=== PATIENT | female | born 1955 | race Caucasian/White ===

== ENCOUNTER → 2017-11-05 | Outpatient (CLI) | payer OTHER ==
[~2017-11-05] MED LIST: ACET325 PO; ALBU90OI INH; ASPI81CH PO; ATOR40TA PO; CIPR250 PO; CIPR500 PO; CITA20 PO; DICL25ER PO; DULO60; DULO60 PO; GABA300 PO; GABA400 PO; Humalog100 UNIT/1; Humalog100 UNIT/1 SC; IBUP200 PO; INSDET100 SC; INSULANPEN; ISOMON20; Inderal40 MG; LEVO750 PO; LIRA0.6P; LISI5 PO; LORTAB 5-325 M1 EACH PO; Lipofen150 MG PO; MAGCHL64ER; METF500 PO; METF500C PO; METF850 PO; METO25; NAPR500 PO; Nitroglycerin0.4 MG SL; Norco 5-325 Ta1 EACH PO; OXYACE5T PO; Omeprazole20 M1; PRAV20 PO; Percocet 5-3251 EACH PO; Prednisone20 MG PO; SIMV40 PO; SUMA25 PO; TOPI50 PO; Zithromax250 MG PO
[2017-11-05 13:24] LABS: Alanine Aminotransfer (ALT/SGP 33 U/L (12-78); Albumin, Blood 3.4 g/dL (3.4-5.0); Alk Phos 115 U/L (50-136); Anion Gap 9 mmol/L (6-16); Aspartate Aminotrans (AST/SGOT 13 U/L (12-37); Bilirubin, Total 0.5 mg/dL (0.1-1.0); Blood Urea Nitrogen 16 mg/dL (8-24); Bun/Creatinine Ratio 25.9 (12.0-20.0); CO2, Blood 25 mmol/L (21-32); Calcium, Blood 8.6 mg/dL (8.5-10.1); Chloride, Blood 101 mmol/L (98-108); Creatinine, Blood 0.62 mg/dL (0.40-1.00); Globulin, Blood 3.5 g/dL (2.2-4.0); Glomerular Filtration Rate >60 (60-); Glucose, Blood 287 mg/dL (70-99); Potassium, Blood 5.2 mmol/L (3.5-5.5); Sodium, Blood 135 mmol/L (136-145); Total Protein, Blood 6.9 g/dL (6.4-8.2)
== END | disposition home or self-care (01) ==
LOC: LAB 12:20 → LAB SHORT 12:20
PROVIDERS: Internal Medicine Hematology & Oncology
DX: M81.0 Age-related osteoporosis without current pathological fracture (principal)
CPT/HCPCS: 80053

== ENCOUNTER 2018-06-18 10:38 | Emergency (ER) | payer OTHER ==
[~2018-06-18] VITALS: Ht 152.4 cm; Wt 66.7 kg
[2018-06-18 11:25] LABS: BASOPHILS ABSOLUTE AUTO 0.08 K/mm3 (0.00-0.23); BASOPHILS PERCENT AUTO 1 % (0-2); EOSINOPHILS ABSOLUTE AUTO 0.13 K/mm3 (0.00-0.68); EOSINOPHILS PERCENT AUTO 1 % (0-6); Hematocrit 43.9 % (33.0-51.0); Hemoglobin 14.5 g/dL (11.5-16.0); IMMATURE GRAN ABSOLUTE AUTO 0.05 K/mm3 (0.00-0.10); IMMATURE GRAN PERCENT AUTO 0 % (0-1); LYMPHOCYTES ABSOLUTE AUTO 1.77 K/mm3 (0.84-5.20); LYMPHOCYTES PERCENT AUTO 14 % (21-46); MONOCYTES ABSOLUTE AUTO 0.41 K/mm3 (0.16-1.47); MONOCYTES PERCENT AUTO 3 % (4-13); Mean Corpuscular Volume 91 fL (80-100); Mean Platelet Volume 10.2 fL (9.1-12.4); NEUTROPHILS ABSOLUTE AUTO 10.64 K/mm3 (1.96-9.15); NEUTROPHILS PERCENT AUTO 81 % (41-73); Platelet Count 344 K/mm3 (150-400); RDW Coefficient Variation 12.4 % (11.7-14.2); RDW Standard Deviation 41.1 fL (35.1-46.3); Red Blood Cell Count 4.83 M/mm3 (3.80-5.20); White Blood Cell Count 13.08 K/mm3 (4.00-11.30)
[2018-06-18 11:44] LABS: Alanine Aminotransfer (ALT/SGP 32 U/L (12-78); Albumin, Blood 3.2 g/dL (3.4-5.0); Albumin/Globulin Ratio 0.7 (0.8-1.8); Alk Phos 132 U/L (50-136); Anion Gap 12 mmol/L (6-16); Aspartate Aminotrans (AST/SGOT 11 U/L (12-37); Bilirubin, Total 0.6 mg/dL (0.1-1.0); Blood Urea Nitrogen 18 mg/dL (8-24); Bun/Creatinine Ratio 27.3 (12.0-20.0); CO2, Blood 23 mmol/L (21-32); Calcium, Blood 8.5 mg/dL (8.5-10.1); Chloride, Blood 100 mmol/L (98-108); Creatinine, Blood 0.66 mg/dL (0.40-1.00); Globulin, Blood 4.3 g/dL (2.2-4.0); Glomerular Filtration Rate >60 (60-); Glucose, Blood 359 mg/dL (70-99); Potassium, Blood 3.8 mmol/L (3.5-5.5); Sodium, Blood 135 mmol/L (136-145); Total Protein, Blood 7.5 g/dL (6.4-8.2)
[2018-06-18 13:30] LABS: Influenza A Negative (NEGATIVE); Influenza B Negative (NEGATIVE)
[2018-06-18] MEDS ORDERED: Prednisone20 MG PO (14:14)
== END 2018-06-18 14:30 | disposition home or self-care (01) ==
LOC: ER 10:38
PROVIDERS: Physician Assistant
DX: J40 Bronchitis, not specified as acute or chronic (principal); J98.01 Acute bronchospasm; E11.65 Type 2 diabetes mellitus with hyperglycemia; G43.909 Migraine, unspecified, not intractable, without status migrainosus; F41.9 Anxiety disorder, unspecified; F17.210 Nicotine dependence, cigarettes, uncomplicated; Z88.2 Allergy status to sulfonamides; Z88.8 Allergy status to other drugs, medicaments and biological substances; Z88.5 Allergy status to narcotic agent; Z91.030 Bee allergy status; Z79.899 Other long term (current) drug therapy; Z79.4 Long term (current) use of insulin
CPT/HCPCS: 36415; 71046; 80053; 82947; 83880; 84484; 85025; 87804; 93005; 93010; 96361; 96374; 96375; 99284-25; J1170; J1815; J2405; J7120

== ENCOUNTER 2019-01-07 21:27 | Emergency (ER) | payer OTHER ==
[~2019-01-07] VITALS: Ht 152.4 cm; Wt 69.0 kg
[2019-01-07 21:55] LABS: BASOPHILS ABSOLUTE AUTO 0.08 K/mm3 (0.00-0.23); BASOPHILS PERCENT AUTO 1 % (0-2); EOSINOPHILS ABSOLUTE AUTO 0.16 K/mm3 (0.00-0.68); EOSINOPHILS PERCENT AUTO 1 % (0-6); Hematocrit 44.5 % (33.0-51.0); Hemoglobin 14.7 g/dL (11.5-16.0); IMMATURE GRAN ABSOLUTE AUTO 0.05 K/mm3 (0.00-0.10); IMMATURE GRAN PERCENT AUTO 0 % (0-1); LYMPHOCYTES ABSOLUTE AUTO 4.52 K/mm3 (0.84-5.20); LYMPHOCYTES PERCENT AUTO 33 % (21-46); MONOCYTES ABSOLUTE AUTO 0.67 K/mm3 (0.16-1.47); MONOCYTES PERCENT AUTO 5 % (4-13); Mean Corpuscular HGB 30.4 pg (26.0-34.0); Mean Corpuscular Volume 92 fL (80-100); Mean Platelet Volume 10.1 fL (9.1-12.4); NEUTROPHILS ABSOLUTE AUTO 8.08 K/mm3 (1.96-9.15); NEUTROPHILS PERCENT AUTO 60 % (41-73); Platelet Count 353 K/mm3 (150-400); RDW Coefficient Variation 12.3 % (11.7-14.2); RDW Standard Deviation 41.9 fL (35.1-46.3); Red Blood Cell Count 4.83 M/mm3 (3.80-5.20); White Blood Cell Count 13.56 K/mm3 (4.00-11.30)
[2019-01-07 22:09] LABS: Alanine Aminotransfer (ALT/SGP 42 U/L (12-78); Albumin/Globulin Ratio 0.8 (0.8-1.8); Alk Phos 102 U/L (50-136); Anion Gap 11 mmol/L (6-16); Aspartate Aminotrans (AST/SGOT 30 U/L (12-37); Bilirubin, Total 0.3 mg/dL (0.1-1.0); Blood Urea Nitrogen 22 mg/dL (8-24); CO2, Blood 23 mmol/L (21-32); Calcium, Blood 8.6 mg/dL (8.5-10.1); Chloride, Blood 106 mmol/L (98-108); Creatinine, Blood 0.85 mg/dL (0.40-1.00); Glomerular Filtration Rate >60 (60-); Glucose, Blood 167 mg/dL (70-99); Potassium, Blood 4.2 mmol/L (3.5-5.5); Sodium, Blood 140 mmol/L (136-145); Troponin I <0.015 ng/mL (0.000-0.040)
[2019-01-07] MEDS ORDERED: TRAM50 PO (23:01)
== END 2019-01-08 01:43 | disposition home or self-care (01) ==
LOC: ER 21:27
PROVIDERS: Emergency Medicine
DX: R07.89 Other chest pain (principal); Z88.7 Allergy status to serum and vaccine; Z88.2 Allergy status to sulfonamides; Z88.6 Allergy status to analgesic agent; Z91.030 Bee allergy status; Z88.5 Allergy status to narcotic agent; Z79.899 Other long term (current) drug therapy; Z79.4 Long term (current) use of insulin; E11.9 Type 2 diabetes mellitus without complications; I10 Essential (primary) hypertension; G43.909 Migraine, unspecified, not intractable, without status migrainosus; J44.9 Chronic obstructive pulmonary disease, unspecified; F41.9 Anxiety disorder, unspecified; F17.210 Nicotine dependence, cigarettes, uncomplicated
CPT/HCPCS: 36415; 71046; 71260; 80053; 84484; 85025; 85379; 93005; 93010; 96361; 96374-59; 99285-25; J2060; J7030; Q9967

== ENCOUNTER 2019-09-30 10:04 | Inpatient (IN) | payer OTHER ==
[~2019-09-30] VITALS: Ht 152.4 cm; Wt 74.3 kg
[~2019-09-30 10:04] MED LIST changes: -INSULANPEN; +INSULANPEN SC; +TRAM50 PO
[2019-09-30 10:52] LABS: BASOPHILS ABSOLUTE AUTO 0.05 K/mm3 (0.00-0.23); BASOPHILS PERCENT AUTO 0 % (0-2); EOSINOPHILS ABSOLUTE AUTO 0.18 K/mm3 (0.00-0.68); EOSINOPHILS PERCENT AUTO 2 % (0-6); Hematocrit 35.1 % (33.0-51.0); Hemoglobin 11.2 g/dL (11.5-16.0); IMMATURE GRAN ABSOLUTE AUTO 0.03 K/mm3 (0.00-0.10); IMMATURE GRAN PERCENT AUTO 0 % (0-1); LYMPHOCYTES ABSOLUTE AUTO 1.67 K/mm3 (0.84-5.20); LYMPHOCYTES PERCENT AUTO 15 % (21-46); MONOCYTES ABSOLUTE AUTO 0.59 K/mm3 (0.16-1.47); MONOCYTES PERCENT AUTO 5 % (4-13); Mean Corpuscular HGB 30.1 pg (26.0-34.0); Mean Corpuscular HGB Conc 31.9 g/dL (31.5-36.5); Mean Corpuscular Volume 94 fL (80-100); Mean Platelet Volume 10.2 fL (9.1-12.4); NEUTROPHILS ABSOLUTE AUTO 8.63 K/mm3 (1.96-9.15); NEUTROPHILS PERCENT AUTO 77 % (41-73); Platelet Count 356 K/mm3 (150-400); RDW Coefficient Variation 13.3 % (11.7-14.2); RDW Standard Deviation 46.8 fL (35.1-46.3); Red Blood Cell Count 3.72 M/mm3 (3.80-5.20); White Blood Cell Count 11.15 K/mm3 (4.00-11.30)
[2019-09-30 11:00] LABS: Calcium, Ionized (POC) 1.17 mmol/L (1.10-1.46); Chloride (POC) 105 mmol/L (98-108); Creatinine (POC) 0.6 mg/dL (0.6-1.0); Glucose (ISTAT POC) 357 mg/dL (70-99); Hemoglobin (POC) 11.2 g/dL (12.0-16.0); Potassium (POC) 4.8 mmol/L (3.5-5.5); Sodium (POC) 135 mmol/L (135-148); Total CO2 (POC) 21 mmol/L (21-32)
[2019-09-30 11:12] LABS: Alanine Aminotransfer (ALT/SGP 42 U/L (12-78); Albumin, Blood 2.5 g/dL (3.4-5.0); Albumin/Globulin Ratio 0.6 (0.8-1.8); Alk Phos 159 U/L (50-136); Anion Gap 10 mmol/L (6-16); Aspartate Aminotrans (AST/SGOT 45 U/L (12-37); Bilirubin, Total 0.6 mg/dL (0.1-1.0); Blood Urea Nitrogen 16 mg/dL (8-24); Bun/Creatinine Ratio 26.1 (12.0-20.0); CO2, Blood 20 mmol/L (21-32); Calcium, Blood 8.8 mg/dL (8.5-10.1); Chloride, Blood 107 mmol/L (98-108); Creatinine, Blood 0.61 mg/dL (0.40-1.00); Globulin, Blood 4.5 g/dL (2.2-4.0); Glomerular Filtration Rate >60 (60-); Glucose, Blood 369 mg/dL (70-99); Potassium, Blood 4.8 mmol/L (3.5-5.5); Sodium, Blood 137 mmol/L (136-145)
[2019-09-30 11:15] LABS: International Normalized Ratio 0.95; Prothrombin Time Results 10.2 Sec (9.7-11.5)
--- NOTE | 2019-09-30 13:34 | NUR ---
Admission/[place] of Care: Patient arrived to unit at 1230hr via ICU bed, accompanied by [facility] RN's. Patient alert and oriented x4. Denies chest pain, pressure, or discomfort. Denies dyspnea/SOB, spO2-98% on RA. Did complain of SOB after lying flat to change lines, but quickly recovered with rest and raising HOB. TR band in place to rt radial, 11ml air, arm board in place. Rt radial arterial access site wnl, no s/s of bleeding or hematoma noted. VSS, HR shows sinus tach in low 100's with a BBB. Plan to call preparer r/t lack of admission and diet orders. Call light in reach, makes needs known. Will continue to monitor.
[2019-09-30 14:48] LABS: Source, Urine Catheter
[2019-09-30 14:50] LABS: Bilirubin, Urine Neg (Neg); Blood, Urine 3+ (Neg); Glucose Qualitative, Urine 3+ (Neg); Ketones, Urine Neg (Neg); Leukocyte Esterase, Urine Neg (Neg); Nitrite, Urine Pos (Neg); Protein, Urine 2+ (Neg); Urobilinogen, Urine NORM (Normal)
[2019-09-30 14:59] LABS: Appearance, Urine Clear (Clear); Color, Urine Pale Yellow (P-Yellow)
[2019-09-30 15:00] LABS: Bacteria Mod /hpf; Squamous Epithelial Cells Few /hpf (Few); White Blood Cells, Urine 0-2 /hpf (0-5)
--- NOTE | 2019-09-30 15:29 | NUR ---
Echocardiogram completed.
--- NOTE | 2019-09-30 16:15 | NUR ---
AGGITATION PT RESTLESS UP IN BEDSIDE CHAIR, NEEDING FREQUENT REMINDING TO NOT USE RIGHT ARM, DUE TO RISK OF BLEEDING. ARM BOARD AND TR BAND REMAIN IN PLACE. PT CONITNUES TO STATE "I KNOW". PT REQUESTING PAIN MEDICATION FOR CHEST PAIN 10/27. PT NOTIFIED TO BE CALLED FOR ADDITIONAL MEDICATIONS. DR. BRAMBILA CALLED AND UPDATED ON PT CONDITION AND CHEST PAIN. ADDITIONAL MEDICATIONS TO BE OREDERED, NITRO PASTE AND FENTANYL. AFTER SPEAKING TO THE DR, RETURNED TO PT ROOM TO UPDATE ON NEW ORDERS, AT THIS TIME PT WAS PULLING DRESSING OFF OF HER IV.THE PATIENT WAS ASKED TO PLEASE STOP SO THE REMOVAL OF THE IV COULD BE DONE PROPERLY. PT UPDATED THAT IF THE IV IS REMOVED THEN WE WOULD NEED TO START ANOTHER ONE IN ORDER TO GIVE HER THE NEW MEDICATIONS FOR PAIN. PT. CONTINUED TO PULL AT IV STATING "IM GOING HOME, MY IS ON THE WAY". DRESSING TORN DOWN BY PT, AND IV PULLED. DRESSING PLACED. DISCUSSED IN DETAIL THE RISKS OF LEAVING AT THIS TIME, PT STATES "I DONT CARE IM LEAVING AMA". PT PRIMARY RN AT BEDSIDE. PT. DEMANDING CLOTHES. RISK OF BLEEDING, CARDIAC ARREST, AND REITERATED TO PT FOR LEAVING AMA. PT STATES "IM JUST GOING HOME TO LAY IN BED". DR. BRAMBILA AT BEDSIDE TO ALSO DISCUSS RISKS OF LEAVING WITH PT. PT. CONTINUES TO BE ADAMANT ABOUT LEAVING AMA. AMA FORM OBTAINED, RISKS AND BENEFITS READ TO PT AND PT ABLE TO SIGN.
--- NOTE | 2019-09-30 17:24 | NUR ---
DR BRAMBILA WROTE FOR [facility], THIS WAS CALLED INTO PT. PHARMACY. PT CALLED AND NOTIFIED OF THIS, ENCOURAGED TO FOLLOW PRESCRIPTION PRESCRIBED.
--- NOTE | 2019-09-30 17:30 | NUR ---
AMA: See note "Agitation" for further description of behaviors. Patient found attempting to get out of bed (sitting on bedside) at approx 1530hr. Patient then demanded to get out of bed and sit in chair. Calm and comfortable once assisted to chair, PO fluids and call light in reach. At approx 1630hr, this nurse called to room, informed from pharmacist in charge that patient was pulling out her IV and demanding to leave AMA. Patient educated on need for the IV. Also educated on safety concerns for if she went home at this time (bleeding, cardiac arrest, re-clotting of her newly placed stents). Patient continued to demand that she was going home, "my is on his way". Dr. Francisco then to room and also educated patient on the need to stay and the concerns with her going home. Patient continued to demand to leave AMA. AMA paper's then reveiw with patient and signed by patient. TR band to rt radial access site removed. Site remained WNL, no s/s of bleeding/hematoma, armboard left in place. This nurse educated patient several times on risk for bleed from rt wrist, to not use rt arm/wrist, and return to ED if s/s of bleeding/swelling appear. Zhu catheter and IV to rt AC also removed. Patient transferred via w/c by this RN to [facility]. Patient stood and transferred into passenger side of personal vehicle. Patient shown the rt radial site and also educated on care/concerns for bleeding/hematoma.
== END 2019-09-30 17:00 | disposition left against medical advice (07) | DRG 247 ==
LOC: ER 10:04 → ICUW 11:02
PROVIDERS: Emergency Medicine; ADMIT Internal Medicine Interventional Cardiology
PROC: 4A023N7 Measurement of Cardiac Sampling and Pressure, Left Heart, Percutaneous Approach (ICD-10-PCS; principal; 2019-09-30)
PROC: 027035Z Dilation of Coronary Artery, One Artery with Two Drug-eluting Intraluminal Devices, Percutaneous Approach (ICD-10-PCS; 2019-09-30)
PROC: B2111ZZ Fluoroscopy of Multiple Coronary Arteries using Low Osmolar Contrast (ICD-10-PCS; 2019-09-30)
DX: I21.3 ST elevation (STEMI) myocardial infarction of unspecified site (principal); M19.90 Unspecified osteoarthritis, unspecified site; J44.9 Chronic obstructive pulmonary disease, unspecified; M79.7 Fibromyalgia; Z79.4 Long term (current) use of insulin; E78.5 Hyperlipidemia, unspecified; Z88.8 Allergy status to other drugs, medicaments and biological substances; N18.9 Chronic kidney disease, unspecified; I12.9 Hypertensive chronic kidney disease with stage 1 through stage 4 chronic kidney disease, or unspecified chronic kidney disease; E11.22 Type 2 diabetes mellitus with diabetic chronic kidney disease
CPT/HCPCS: 36415; 51702; 80047; 80053; 81001; 82947; 83880; 84145; 84484; 85014; 85025; 85347; 85610; 85730; 87077; 87086; 87186; 92978; 93005; 93010; 93458; 99152; 99153; 99285-25; A9270-GY; C1725; C1753; C1769; C1874; C1887; C1894; C8929; C9606; J0153; J1644; J1940; J2250; J3010; J7030; Q9957; Q9967